=== PATIENT | male | born 1955 | race African-American/Black ===

== ENCOUNTER 2022-12-02 12:16 | Emergency (ER) | payer MEDICARE, OTHER ==
[2022-12-02 12:47] LABS: Bilirubin Neg (Negative); Blood, Urine 10 (Negative); Glucose, Urine (Dipstick) Normal (Negative); Ketone, Urine Negative (Negative); Leukocyte 500 (Negative); Nitrite Positive (Negative); Protein, Urine (Dipstick) Negative (Neg-Trace); Urobilinogen Normal mg/dL (Less than 2)
[2022-12-02 12:48] LABS: Clarity Slightly Cloudy (Clear)
[2022-12-02 12:54] LABS: CAUTI Indications for Culture Fever or rigors; RBC/HPF 0-3 HPF (0-3)
[2022-12-02 12:55] LABS: Bacteria/HPF 4+ HPF (None Seen); Squamous Epithelial 0-3 HPF (0-3)
[2022-12-02 12:56] LABS: Urine Culture Reflex Yes Yes
[2022-12-02] MEDS ORDERED: Ciprofloxacin 500 MG TAB ONE (14:41)
[2022-12-02] MEDS ORDERED: valACYclovir 500 MG TAB PO SCH (15:00)
== END 2022-12-02 15:35 | disposition home or self-care (01) ==
LOC: CSHERS 12:16
DX: N39.0 Urinary tract infection, site not specified (principal); B00.1 Herpesviral vesicular dermatitis; I10 Essential (primary) hypertension; E11.9 Type 2 diabetes mellitus without complications
CPT/HCPCS: 36416; 81001; 87077; 87086; 87186; 99283